=== PATIENT | male | born 1985 | race Caucasian/White ===

== ENCOUNTER 2019-06-27 14:50 | Emergency (ER) | payer BC ==
[2019-06-27] MEDS ORDERED: Ketorolac 30 MG/ML SDV IM ONE (15:13)
[2019-06-27] MEDS ORDERED: Orphenadrine 100 MG Tab.ER PO ONE (15:13)
--- NOTE | 2019-06-27 15:22 | EDM.PDOC ---
ED HPI GENERAL MEDICAL PROBLEM - General Chief Complaint: Back Pain or Injury Stated Complaint: BACK PAIN Time Seen by Provider: 06/27/19 15:00 Source of Information: Reports: Patient, RN Notes Reviewed History Limitations: Reports: No Limitations - History of Present Illness INITIAL COMMENTS - FREE TEXT/NARRATIVE: Patient is a 34-year-old male who presents to the ED for the evaluation of bilateral lower back pain. Patient notes this is been going on for about a week or week and a half, but did worsen today. He does not really surgery of injury that he had to his back. He states he has had some back issues in the past, for which she goes to the chiropractor and this seems to take care of most of this. He denies any previous back surgeries. Patient was using a heating pad, and took 3 tablets of Aleve today, with little to no relief. He notes he does have some sharp shooting radiation pain down his right leg. He notes that the pain is always there, and worsens at times. He states that when he is laying down flat this seems to make the pain feel the best, and when he stands this hurts worse. 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 He denies any numbness or tingling, bowel or bladder dysfunction. He would rate his pain at a 6 or 7 out of 10 today. He does not have a primary care physician. Lower Back Pain Score (Numeric/FACES): 7 - Related Data Allergies Allergy/AdvReac Type Severity Reaction Status Date / Time No Known Allergies Allergy Verified 06/27/19 15:01 Home Meds: Home Meds . [No Known Home Meds] 06/27/19 [History] Past Medical History - Past Health History Medical/Surgical History: Denies Medical/Surgical History Social & Family History - Tobacco Use Smoking Status *Q: Never Smoker - Caffeine Use Caffeine Use: Reports: Energy Drinks, Soda - Recreational Drug Use Recreational Drug Use: No ED ROS GENERAL - Review of Systems Review Of Systems: See Below Constitutional: Denies: Fever, Chills HEENT: Reports: No Symptoms Respiratory: Denies: Shortness of Breath Cardiovascular: Denies: Chest Pain Endocrine: Reports: No Symptoms GI/Abdominal: Denies: Abdominal Pain, Constipation, Diarrhea, Nausea, Vomiting : Denies: Dysuria, Flank Pain Musculoskeletal: Reports: Back Pain (bilateral lower back with radiation down right leg) Skin: Reports: No Symptoms Neurological: Denies: Numbness, Tingling Psychiatric: Reports: No Symptoms Hematologic/Lymphatic: Reports: No Symptoms Immunologic: Reports: No Symptoms ED EXAM,LOWER BACK PAIN/INJURY - Physical Exam Exam: See Below Exam Limited By: No Limitations General Appearance: Alert, WD/WN, No Apparent Distress Respiratory/Chest: No Respiratory Distress, Lungs Clear, Normal Breath Sounds, No Accessory Muscle Use, Chest Non-Tender Cardiovascular: Normal Peripheral Pulses, Regular Rate, Rhythm, No Murmur Back Exam: Normal Inspection, Full Range of Motion, Muscle Spasm (noted to right lumbar area). No: CVA Tenderness (L), CVA Tenderness (R) Extremities: Normal Inspection, Normal Capillary Refill Neurological: Alert, Normal Mood/Affect, Normal Dorsiflexion, Normal Plantar Flexion, Normal Gait, Oriented x 3, Straight Leg Raise (R) (slightly positive). No: Straight Leg Raise (L), Saddle Anesthesia Psychiatric: Normal Affect, Normal Mood Skin Exam: Warm, Dry, Intact, Normal Color, No Rash Course - Vital Signs Last Recorded V/S: Last Vital Signs Temp 98.4 F 06/27/19 15:03 Pulse 70 06/27/19 15:03 Resp 20 06/27/19 15:03 BP 120/80 06/27/19 15:03 Pulse Ox 98 06/27/19 15:03 - Orders/Labs/Meds Meds: Medications Discontinued Medications Generic Name Dose Route Start Last Admin Trade Name Thierry PRN Reason Stop Dose Admin Ketorolac Tromethamine 30 mg 06/27/19 15:13 06/27/19 15:23 Toradol IM 06/27/19 15:14 30 mg ONETIME ONE Administration Orphenadrine Citrate 100 mg 06/27/19 15:13 06/27/19 15:23 Norflex PO 06/27/19 15:14 100 mg ONETIME ONE Administration - Re-Assessments/Exams Free Text/Narrative Re-Assessment/Exam: 06/27/19 15:24 Patient presents to the ED for evaluation of lower back pain. I did order 30 mg IV Toradol, and 100 mg PO Norflex for initial management. We'll reassess after the meds have been given. 06/27/19 15:56 Patient was reassessed at bedside, and states he can get out of the bed a little quicker, and his pain has decreased. We will provide him with a prescription for prednisone, and Flexeril for further management. Departure - Departure Time of Disposition: 15:56 Disposition: Home, Self-Care 01 Condition: Fair Clinical Impression: Low back pain Qualifiers: Chronicity: acute Back pain laterality: bilateral Sciatica presence: with sciatica Sciatica laterality: sciatica of right side Qualified Code(s): M54.41 - Lumbago with sciatica, right side - Discharge Information *PRESCRIPTION DRUG MONITORING PROGRAM REVIEWED*: No *COPY OF PRESCRIPTION DRUG MONITORING REPORT IN PATIENT TIERRA: No Instructions: Back Injury Prevention, [id number], Back Exercises, Easy-to- Read Referrals: PCP,None [Primary Care Provider] - Forms: ED Department Discharge Additional Instructions: You were evaluated in the ER today regarding your lower back pain. No imaging was done at today's visit, your pain is most likely due to sciatica involving the right leg. You were given a prescription for prednisone, please take one tab 2 times daily for 5 days, and then 1 tab daily for the next 5 days. There will be 5 extra tablets in the prescription, you will not need to take these. You were given a prescription for Flexeril, cyclobenzaprine, please take one tablet 3 times daily as needed for muscle spasms. Please note this medication be making her feel sedated, if you feel too tired from this medication, recommend that you take this at nighttime only. You may still take ibuprofen on a daily basis, 600 mg every 6 hours as needed. Do not exceed 3200 mg in a 24-hour time span. Recommend follow-up with a primary care physician after the prednisone has been taken, if the back pain is not much better. Please return to ED if your symptoms should change or worsen.
== END 2019-06-27 16:00 | disposition home or self-care (01) ==
LOC: JD.ED 14:50
DX: M54.41 Lumbago with sciatica, right side (principal)
CPT/HCPCS: 96372; 99283; A9270; J1885

== ENCOUNTER 2019-09-11 23:13 | Emergency (ER) | payer BC, OTHER ==
--- NOTE | 2019-09-11 23:52 | EDM.PDOC ---
ED HPI GENERAL MEDICAL PROBLEM - General Chief Complaint: Headache Stated Complaint: major headache for a month Time Seen by Provider: 09/11/19 23:20 Source of Information: Reports: Patient History Limitations: Reports: No Limitations - History of Present Illness INITIAL COMMENTS - FREE TEXT/NARRATIVE: This is a 34-year-old male. For about the last month he has been having left sided headaches. He states the pain starts in his left eye or tear duct goes back to his left oriental orthodox seems to go down to his TMJ joint and causing some tooth pain and then it goes into his left side of his head. He has no nausea and vomiting with it. He has no aura or visual changes with it. Typically they last 1 to 2 hours in bed they begin to fade and go away and usually he has at least 1 a day or 1 every couple of days like this. Nothing seems to make them happen they just happen. Straining does not make it worse the teeth are nontender and he has no cavities on that side. Is no history of migraines in the past. He does not know why he is having these and he went to the walk-in clinic and they thought he was having sinus congestion because he does have some postnasal drainage even now and they placed him on amoxicillin. He has not noticed any difference with the drainage with the amoxicillin or the headache occurrence. Headache Pain Score (Numeric/FACES): 7 - Related Data Allergies Allergy/AdvReac Type Severity Reaction Status Date / Time No Known Allergies Allergy Verified 09/11/19 23:28 Home Meds: Home Meds Amoxicillin/Potassium Clav [Augmentin 875-125 Tablet] 1 each PO BID #20 tablet 09/12/19 [Rx] Past Medical History - Past Health History Medical/Surgical History: Denies Medical/Surgical History Social & Family History - Tobacco Use Smoking Status *Q: Never Smoker - Caffeine Use Caffeine Use: Reports: Energy Drinks, Soda - Alcohol Use Days Per Week of Alcohol Use: 2 Number of Drinks Per Day: 2 Total Drinks Per Week: 4 - Recreational Drug Use Recreational Drug Use: No ED ROS GENERAL - Review of Systems Review Of Systems: See Below Constitutional: Denies: Fever, Chills HEENT: Reports: Eye Pain, Other (Samaritan and jaw pain with the headaches) Respiratory: Reports: No Symptoms Cardiovascular: Reports: No Symptoms Endocrine: Reports: No Symptoms GI/Abdominal: Reports: No Symptoms : Reports: No Symptoms Musculoskeletal: Reports: No Symptoms Skin: Reports: No Symptoms Neurological: Reports: Headache. Denies: Confusion, Dizziness, Syncope Psychiatric: Reports: No Symptoms Hematologic/Lymphatic: Reports: No Symptoms - Physical Exam Exam: See Below Exam Limited By: No Limitations General Appearance: Alert, WD/WN, No Apparent Distress Eye Exam: Bilateral Eye: Normal Inspection, Other (Tear duct and the lids do not appear to be swollen and there is no redness or periorbital redness noted) Ears: Normal External Exam, Normal Canal, Normal TMs Nose: Other (No significant nasal drainage though he does complain of postnasal drainage) Throat/Mouth: Normal Inspection, Normal Lips, Normal Oropharynx, Normal Voice, No Airway Compromise Head Exam: Normocephalic Neck: Supple, Other (Patient to the temporal artery does not reveal any tenderness his TM J joint on the left is nontender on palpation, he is able to open his jaw and close it with no pain and there is no tooth pain with clenching of his jaw or with eating) Respiratory/Chest: No Respiratory Distress GI/Abdominal: Soft Neuro Exam (Abbreviated): Alert, Oriented, Other (Denies any neurological deficits, numbness or tingling in his hands and feet or any other acute neurological problems) Back Exam: Full Range of Motion Extremities: Normal Inspection, Normal Range of Motion Psychiatric: Normal Affect, Normal Mood Skin Exam: Warm, Dry Course - Vital Signs Last Recorded V/S: Last Vital Signs Temp 97.9 F 09/11/19 23:26 Pulse 80 09/11/19 23:26 Resp 16 09/11/19 23:26 BP 139/84 09/11/19 23:26 Pulse Ox 96 09/11/19 23:26 - Orders/Labs/Meds Orders: Active Orders 24 hr Category Date Time Status Head wo Cont [CT] Stat Exams 09/11/19 23:46 Taken Maxillofacial w/o CM [Max Facial Sinus wo Cont] [CT] Exams 09/11/19 23:45 Taken Stat Labs: Laboratory Tests 09/12/19 09/12/19 Range/Units 00:02 00:02 WBC 9.07 (4.23-9.07) K/mm3 RBC 5.16 (4.63-6.08) M/mm3 Hgb 15.4 (13.7-17.5) gm/dl Hct 43.7 (40.1-51.0) % MCV 84.7 (79.0-92.2) fl MCH 29.8 (25.7-32.2) pg MCHC 35.2 (32.2-35.5) g/dl RDW Std Deviation 42.1 (35.1-43.9) fL Plt Count 307 (163-337) K/mm3 MPV 9.6 (9.4-12.3) fl Neut % (Auto) 62.7 (34.0-67.9) % Lymph % (Auto) 22.9 (21.8-53.1) % Amador % (Auto) 8.7 (5.3-12.2) % Eos % (Auto) 4.6 (0.8-7.0) Baso % (Auto) 0.9 (0.1-1.2) % Neut # (Auto) 5.68 H (1.78-5.38) K/mm3 Lymph # (Auto) 2.08 (1.32-3.57) K/mm3 Amador # (Auto) 0.79 (0.30-0.82) K/mm3 Eos # (Auto) 0.42 (0.04-0.54) K/mm3 Baso # (Auto) 0.08 (0.01-0.08) K/mm3 C-Reactive Protein 0.4 (<1.0) mg/dL - Radiology Interpretation Free Text/Narrative:: CT scan of the head did not show any acute changes. CT scan of the face and sinuses shows a retention cyst versus polyp in the left maxillary sinus but there are no air-fluid levels - Re-Assessments/Exams Free Text/Narrative Re-Assessment/Exam: 09/12/19 00:53 [place] to the patient regarding the polyp or retention cyst in the left maxillary sinus that they can on occasions because chronic sinus infections as well as pain it could certainly be the reason why he has pain underneath his left eye and that goes back into his head causing his headaches. I am going to place him on Augmentin for his sinus drainage and a decongestant and hopefully this will resolve his sinus symptoms as well as his headaches. I will refer him to a CP for him to follow-up. Departure - Departure Time of Disposition: 00:55 Disposition: Home, Self-Care 01 Condition: Good Clinical Impression: Maxillary sinus polyp Acute sinusitis Qualifiers: Sinusitis location: maxillary Recurrence: non-recurrent Qualified Code(s): J01.00 - Acute maxillary sinusitis, unspecified Headache Qualifiers: Headache type: other headache syndrome Qualified Code(s): G44.89 - Other headache syndrome - Discharge Information *PRESCRIPTION DRUG MONITORING PROGRAM REVIEWED*: Not Applicable *COPY OF PRESCRIPTION DRUG MONITORING REPORT IN PATIENT TIERRA: Not Applicable Prescriptions: Amoxicillin/Potassium Clav [Augmentin 875-125 Tablet] 1 each PO BID #20 tablet Instructions: Sinusitis, Adult, [id number], Sinus Headache Referrals: Bita Robison PA-C [Physician Mobile Ui Designer] - Forms: ED Department Discharge Additional Instructions: Stop the amoxicillin and start the Augmentin tomorrow when you get it, try moist heat to that left sinus area when the headache begins to start, consider taking a decongestant such as Claritin Ania or Zyrtec to help dry up the drainage and open up the sinuses, follow-up with the provider I have referred you to next week for recheck and possible referral to ENT doctor due to the maxillary sinus polyp that might be the cause of your symptoms, return to the ER if needed Sepsis Event Note - Evaluation Sepsis Screening Result: No Definite Risk - Focused Exam Vital Signs: Vital Signs Temp Pulse Resp BP Pulse Ox 09/11/19 23:26 97.9 F 80 16 139/84 96 Date Exam was Performed: 09/12/19 Time Exam was Performed: 00:53 - My Orders Last 24 Hours: My Active Orders 09/11/19 23:45 Maxillofacial w/o CM [Max Facial Sinus wo Cont] [CT] Stat 09/11/19 23:46 Head wo Cont [CT] Stat - Assessment/Plan Last 24 Hours: My Active Orders 09/11/19 23:45 Maxillofacial w/o CM [Max Facial Sinus wo Cont] [CT] Stat 09/11/19 23:46 Head wo Cont [CT] Stat
--- NOTE | 2019-09-12 19:59 | CT ---
CT facial bones Technique: Multiple axial sections through the facial bones were obtained. Reconstructed coronal and sagittal images were reviewed. Comparison: No prior facial bone imaging. Findings: Rounded soft tissue density is noted within the inferior left maxillary sinus measuring 1.6 cm in size compatible with a retention cyst. Other sinuses are clear. Lucent line is noted to the right side of the nasal bone. This is felt compatible with nasal bone fracture, this is most likely old. No additional facial bone abnormality is seen. Right and left globes are symmetric in size. No retrobulbar abnormality is seen. Impression: 1. Retention cyst within the left maxillary sinus. 2. Probable old nasal bone fracture. 3. Nothing acute is appreciated on CT study of the facial bones. Diagnostic code #2 This report was dictated in [place] Standard Time I agree with preliminary report from [facility], finalized on 09/12/19, 1:46 AM Central Time
--- NOTE | 2019-09-12 19:59 | CT ---
Head CT Technique: Multiple axial sections through the brain were obtained. Intravenous contrast was not utilized. Comparison: No prior intracranial imaging is available. Findings: Ventricles along with basal cisterns and sulci over the convexities are within normal limits for the patient's age. No abnormal parenchymal densities are seen. No evidence of intracranial hemorrhage. No midline shift or mass effect is seen. Bone window settings were reviewed. No acute calvarial abnormality is appreciated. Impression: 1. Nothing acute is appreciated on noncontrast head CT exam. Diagnostic code #1 This report was dictated in [place] Standard Time I agree with preliminary report from [facility], finalized on 09/12/19, 1:43 AM Central Time
== END 2019-09-12 01:06 | disposition home or self-care (01) ==
LOC: JD.ED 23:13
DX: G44.89 Other headache syndrome (principal); J01.00 Acute maxillary sinusitis, unspecified; J33.8 Other polyp of sinus
CPT/HCPCS: 36415; 70450; 70450-26; 70486; 70486-26; 85025; 86140; 99283; 99284-25